=== PATIENT | male | born 1925 | race Caucasian/White ===

== ENCOUNTER 2016-07-10 13:45 | Observation (INO) ==
--- NOTE | 2016-07-10 14:17 | Emergency Department Note ---
Disposition Clinical Impression: Atrial fibrillation Qualifiers: Atrial fibrillation type: unspecified Qualified Code(s): I48.91 - Unspecified atrial fibrillation Disposition: Admitted As Inpatient Condition: Fair SOB HPI - General Chief Complaint: ED Shortness of Breath/Dyspnea Stated Complaint: SOB, CP Time Seen by Provider: 07/10/16 13:58 Source: patient Limitations: altered mental status Nursing Notes Reviewed: Yes Vital Signs Reviewed: Yes - History of Present Illness Mr. Delgado, an 89yo male, presents from home by POV with daughter bedside, CC: dyspnea. Hx COPD. Dyspnea onset yesterday with associated productive cough. No fever or chills. Nothing noted to worsen or improve his symptoms however his activity level is low at baseline. Patient daughter notes he was also diagnosed with dementia 2 years ago, recently started on a new medication by his PCP. He has had increased confusion since starting that medication described as worse at night and occasionally through during the day. Denies chest pain, diaphoresis, nausea, vomiting, changes in bowel or bladder, light headedness. Patient's daughter denies changes in urine color, frequency, or odor. Patient's daughter is bedside, she is a nurse out of state on a pulmonology unit. PMH: COPD (no home O2, no aerosol medications), DM II diet controlled, HTN, HLD , dementia. No hx ACS, CHF, A.Fib, or CKD. - Related Data Home Medications Medication Instructions Recorded Confirmed Memantine [Namenda] 5 mg PO HS 04/24/15 07/10/16 Omeprazole 20 mg PO DAILY 06/11/16 07/10/16 Aspirin 81 mg PO DAILY 07/10/16 07/10/16 Docusate [Colace] 100 mg PO DAILY 07/10/16 07/10/16 Multivitamin [Multi-Day Vitamins] 1 each PO DAILY 07/10/16 07/10/16 Naproxen Sod/Diphenhydram HCl 1 each PO HS 07/10/16 07/10/16 [Aleve Pm Caplet] Allergies Allergy/AdvReac Type Severity Reaction Status Date / Time No Known Allergies Allergy Verified 06/11/16 01:12 All systems ED: reviewed and negative except as stated. Constitutional: Denies: fever, chills, weakness ENT ED: Denies: congestion Cardiovascular: Reports: dyspnea on exertion. Denies: chest pain, palpitations , orthopnea, syncope Respiratory: Reports: cough, dyspnea, wheezes, sputum production. Denies: hemoptysis Gastrointestinal: Denies: abdominal pain, nausea, vomiting, diarrhea, constipation Genitourinary: Denies: urgency, dysuria Musculoskeletal: Denies: back pain, neck pain Neurological: Denies: headache Past Medical History - Past Medical History Medical history: Reports: dementia, diabetes, other Surgical history: Reports: no surgical history Psychiatric history: Reports: no psych history - Social History Smoking Status: Smoker, status unknown Smokeless Tobacco Status: No Alcohol use: Reports: none Drug use: Reports: none Physical Exam General: Patient is alert, not oriented (dementia), and in no acute distress. HEENT: No facial asymmetry. Head is normocephalic and atraumatic. Trachea midline. Cardiovascular: Heart regular rate and rhythm without clicks, rubs, gallops, or murmurs. No pedal edema. Respiratory: Symmetric chest rise with poor respiratory effort. Prolonged respiratory phase. Bilateral breath sounds have scant mild wheeze, bibasilar crackles, reduced left basilar lung sounds. Abdomen: Bowel sounds present normoactive x-4 quadrants. Abdomen is soft, nondistended, and nontender. No organomegaly noted. Neuro: Cranial nerves II through XII grossly intact. Psych: Patient's affect is appropriate for situation. - General Limitations: altered mental status General appearance: alert Course Course Narrative: Will workup for dyspnea including EKG, troponin, and duonebs. Patient's last UA 06/11 had no growth on culture. Echo March 2016: EF 55% Patient's labwork is unremarkable; no leukocytosis, negative troponin. No suspicion for PE: no recent surgeries, malignancies, travel. No tachycardia , tachypnea, chest pain. No suspicion for [place]: troponin negative. No ischemic EKG findings. EKG read as new onset A.Fib. CXR suspicious for CHF; patient's daughter denies hx CHF. Suspect the patient's symptoms caused by combination of A.Fib and possible CHF; a. fib the major contributing component. Spoke with the hospitalist, Dr. Michael; she agrees to take the patient. I informed her of the need for a sitter given the patient's dementia. 15:51 Patient's daughter is becimong distressed and frustrated. Her father is not currently on a rn cardiac rehab (he removed all the leads), she insists on an ABG as "I have seen patient on my floor with good vitals and bad ABG", and she requests "something to calm him down". I was able to convince her of the lack of utility of an ABG at this juncture given the strong suspicion for cardiac etiology of his symptoms. Will give him vistaril then re-attempt to connect patient to rn cardiac rehab. Vital Signs Temperature 97.3 F L 07/10/16 13:58 Pulse Rate 86 07/10/16 13:58 Respiratory Rate 18 07/10/16 13:58 Blood Pressure 127/65 07/10/16 13:58 O2 Sat by Pulse Oximetry 94 L 07/10/16 13:58 Temperature 98.0 F 07/10/16 17:19 Pulse Rate 103 07/10/16 17:19 Respiratory Rate 15 07/10/16 17:19 Blood Pressure 101/65 07/10/16 17:19 O2 Sat by Pulse Oximetry 92 L 07/10/16 17:19 Oxygen Delivery Oxygen Delivery Room Air Shortness of Breath/Dyspnea - Lab Data Lab results reviewed: Yes I reviewed the patient's lab results. Result diagrams: 07/10/16 14:20 07/10/16 14:20 Lab Results 07/10/16 07/10/16 07/10/16 Range/Units 14:20 14:20 14:20 WBC 6.4 (4.3-11.1) K/mcL RBC 4.00 L (4.19-5.50) M/mcL Hgb 12.6 L (12.9-16.9) g/dL Hct 38.4 (37.5-50.1) % MCV 96.0 (83.0-100.0) fL MCH 31.5 (28.0-33.3) pg MCHC 32.8 (31.6-35.5) g/dL RDW 12.6 (11.5-14.5) % Plt Count 160 (140-400) K/mcL MPV 9.6 (9.4-12.4) fL Immature Gran % 0.8 (0-4) % Seg Neutrophils % 71.3 % Lymphocytes % 20.4 % Monocytes % 6.4 % Eosinophils % 0.6 % Basophils % 0.5 % Neutrophils # 4.6 (1.6-8.9) K/mcL Lymphocytes # 1.3 (0.6-4.6) K/mcL Monocytes # 0.4 (0.0-1.3) K/mcL Eosinophils # 0.0 (0.0-0.6) K/mcL Basophils # 0.0 (0.0-0.2) K/mcL Sodium 141 (136-145) mEq/L Potassium 3.8 (3.5-4.5) mEq/L Chloride 107 (98-109) mEq/L Carbon Dioxide 26 (19-29) mEq/L BUN 36 H (8-26) mg/dL Creatinine 0.86 (0.72-1.25) mg/dL Est GFR ( Amer) > 60 (> 60) Est GFR (Non-Af Amer) > 60 (> 60) BUN/Creatinine Ratio 42 H (6-26) Glucose 157 H (70-99) mg/dL Calculated Osmolality 304 H (280-300) Calcium 9.0 (8.6-10.8) mg/dL Troponin I 0.02 (0-0.03) ng/mL - EKG Data EKG attestation: Yes I reviewed and interpreted this EKG. EKG results narrative: EKG dated 07/10/16 at 13:58 interpreted as satrial fibrillation, rate of 92. Low voltage in limb leads. Compared to previous EKG showing new onset A.Fib.
[2016-07-10] MEDS ORDERED: Ipratropium/Albuterol Neb 3 ML IH ONE (14:21)
[2016-07-10 14:29] LABS: Basophils % 0.5 %; Eosinophils % 0.6 %; Hematocrit 38.4 % (37.5-50.1); Hemoglobin 12.6 g/dL (12.9-16.9); Immature Granulocytes % 0.8 % (0-4); Lymphocytes # 1.3 K/mcL (0.6-4.6); Lymphocytes % 20.4 %; Mean Corpuscular HGB Conc 32.8 g/dL (31.6-35.5); Mean Corpuscular Hemoglobin 31.5 pg (28.0-33.3); Mean Platelet Volume 9.6 fL (9.4-12.4); Monocytes # 0.4 K/mcL (0.0-1.3); Monocytes % 6.4 %; Neutrophils # 4.6 K/mcL (1.6-8.9); Platelet Count 160 K/mcL (140-400); Red Cell Distribution Width 12.6 % (11.5-14.5); Segmented Neutrophils % 71.3 %
[2016-07-10 14:41] LABS: BUN/Creatinine Ratio 42 (6-26); Blood Urea Nitrogen 36 mg/dL (8-26); Carbon Dioxide 26 mEq/L (19-29); Chloride 107 mEq/L (98-109); Glucose 157 mg/dL (70-99); Osmolality,Calculated 304 (280-300); Potassium 3.8 mEq/L (3.5-4.5); Sodium 141 mEq/L (136-145); eGFR For African Americans > 60 (> 60); eGFR For Non-African Americans > 60 (> 60)
--- NOTE | 2016-07-10 15:57 | Emergency Department Note ---
Disposition Clinical Impression: Atrial fibrillation Disposition: Admitted As Inpatient Condition: Fair General Adult HPI - General Chief complaint: ED Shortness of Breath/Dyspnea Stated complaint: SOB, CP Time Seen by Provider: 07/10/16 13:58 Source: patient Limitations: altered mental status - History of Present Illness Pain Scale: 2 - Related Data Home Medications Medication Instructions Recorded Confirmed Memantine [Namenda] 5 mg PO HS 04/24/15 07/10/16 Omeprazole 20 mg PO DAILY 06/11/16 07/10/16 Aspirin 81 mg PO DAILY 07/10/16 07/10/16 Docusate [Colace] 100 mg PO DAILY 07/10/16 07/10/16 Multivitamin [Multi-Day Vitamins] 1 each PO DAILY 07/10/16 07/10/16 Naproxen Sod/Diphenhydram HCl 1 each PO HS 07/10/16 07/10/16 [Aleve Pm Caplet] Allergies Allergy/AdvReac Type Severity Reaction Status Date / Time No Known Allergies Allergy Verified 06/11/16 01:12 Constitutional: Denies: fever, chills, weakness ENT ED: Denies: congestion Cardiovascular: Reports: dyspnea on exertion. Denies: chest pain, palpitations , orthopnea, syncope Respiratory: Reports: cough, dyspnea, wheezes, sputum production. Denies: hemoptysis Gastrointestinal: Denies: abdominal pain, nausea, vomiting, diarrhea, constipation Genitourinary: Denies: urgency, dysuria Musculoskeletal: Denies: back pain, neck pain Neurological: Denies: headache Past Medical History - Past Medical History Medical history: Reports: dementia, diabetes, other Surgical history: Reports: no surgical history Psychiatric history: Reports: no psych history - Social History Smoking Status: Smoker, status unknown Smokeless Tobacco Status: No Alcohol use: Reports: none Drug use: Reports: none Physical Exam - General Limitations: altered mental status General appearance: alert Course - Reevaluation(s) Reevaluation #1: I saw the patient with the resident, Dr. Pulido. Patient presents with report of shortness of breath and wheezing. This is just a couple days. On examination he has wheezes and rales in his lungs. Vital signs are actually good. His pulse ox is in the mid 90s. His EKG however shows atrial fibrillation which is new according to the daughter and looking at old EKGs. Chest x-ray shows pulmonary edema. There is some edema in his legs. He had a echocardiogram done in March which showed an EF of 55%. This leads me to believe that the atrial fibrillation is the cause of this problem. We will give him a small dose of Lasix and arrange for the patient to be admitted to the hospital for management. He has significant dementia and cannot be left alone. In fact even with before the bedside he has pulled out his IV and continues to pull monitor leads off. We are trying to keep up with his best we can. Time: 15:57 Vital Signs Temperature 97.3 F L 07/10/16 13:58 Pulse Rate 86 07/10/16 13:58 Respiratory Rate 18 07/10/16 13:58 Blood Pressure 127/65 07/10/16 13:58 O2 Sat by Pulse Oximetry 94 L 07/10/16 13:58 Temperature 97.9 F 07/10/16 19:31 Pulse Rate 82 07/10/16 19:31 Respiratory Rate 20 07/10/16 19:31 Blood Pressure 115/63 07/10/16 19:31 O2 Sat by Pulse Oximetry 98 07/10/16 19:31 Oxygen Delivery Oxygen Delivery Room Air Medical Decision Making - Lab Data Result diagrams: 07/10/16 14:20 07/10/16 14:20 Lab Results 07/10/16 07/10/16 07/10/16 Range/Units 14:20 14:20 14:20 WBC 6.4 (4.3-11.1) K/mcL RBC 4.00 L (4.19-5.50) M/mcL Hgb 12.6 L (12.9-16.9) g/dL Hct 38.4 (37.5-50.1) % MCV 96.0 (83.0-100.0) fL MCH 31.5 (28.0-33.3) pg MCHC 32.8 (31.6-35.5) g/dL RDW 12.6 (11.5-14.5) % Plt Count 160 (140-400) K/mcL MPV 9.6 (9.4-12.4) fL Immature Gran % 0.8 (0-4) % Seg Neutrophils % 71.3 % Lymphocytes % 20.4 % Monocytes % 6.4 % Eosinophils % 0.6 % Basophils % 0.5 % Neutrophils # 4.6 (1.6-8.9) K/mcL Lymphocytes # 1.3 (0.6-4.6) K/mcL Monocytes # 0.4 (0.0-1.3) K/mcL Eosinophils # 0.0 (0.0-0.6) K/mcL Basophils # 0.0 (0.0-0.2) K/mcL Sodium 141 (136-145) mEq/L Potassium 3.8 (3.5-4.5) mEq/L Chloride 107 (98-109) mEq/L Carbon Dioxide 26 (19-29) mEq/L BUN 36 H (8-26) mg/dL Creatinine 0.86 (0.72-1.25) mg/dL Est GFR ( Amer) > 60 (> 60) Est GFR (Non-Af Amer) > 60 (> 60) BUN/Creatinine Ratio 42 H (6-26) Glucose 157 H (70-99) mg/dL Calculated Osmolality 304 H (280-300) Calcium 9.0 (8.6-10.8) mg/dL Troponin I 0.02 (0-0.03) ng/mL Attestation Statement - Attestation Attestation: I, Dr. Malagon, examined this patient [id number] and my medical decision- making was reviewed with Dr. Bee, Resident Physician. I agree with the documented findings, disposition and treatment plan as described except to the extent set forth below. Please see my progress notes for details.
[2016-07-10] MEDS ORDERED: hydrOXYzine pamoate 25 MG CAPSULE PO STA ×2 (15:58→22:16)
[2016-07-10] MEDS ORDERED: Acetaminophen 325 MG TABLET PO PRN (20:48)
[2016-07-10] MEDS ORDERED: Naloxone 0.4 MG/ML INJ IVP PRN (20:48)
--- NOTE | 2016-07-10 21:20 | Internal Med History&Physical ---
<Ute Hernandez - Last Filed: 07/11/16 00:39> Date of Encounter: 07/11/16 Time of Encounter: 19:30 Assessment and Plan (1) New onset atrial fibrillation Current visit: Yes Status: Acute Per patient's daughter, he has never been diagnosed with Afib in the past. Etiology unclear at this time, consider pneumonia as a possible cause. Last echo was on 03/23/16, showing LVEF 55-60% with mild LV diastolic dysfunction , aortic regurgitation, and moderate bi atrial enlargement. CHADS/VASC score of 6- indicating moderate to high risk of stroke, and there is an indicatoin for fdc anticoagulation. Consult to cardiology for recommendations regarding fdc anticoaglulation. 1mg/kg Lovenox Q12HR. hard to maintain IV access, as patient keeps pulling it out. patient's HR remains below 100. TSH pending. (2) Community acquired pneumonia Current visit: Yes Status: Acute Patient had wheezing upon exertion, productive cough with thick yellow sputum production. Patient lives at home by himself, with family members providing around the clock care. Consider aspiration pneumonia as a potential cause. Denies sick contacts. 500mg IV Levaquin Q24H. Blood cultures x2 pending urine cultures pending. patient does not currently meet criteria for sepsis. (3) Dementia Current visit: Yes Status: Chronic Patient has baseline dementia, with increased restlessness the past few months. Consider follow up with neurology and PCP Continue home medication Namenda. Qualifiers: Dementia type: unspecified type Dementia behavioral disturbance: with behavioral disturbance Qualified Code(s): F03.91 - Unspecified dementia with behavioral disturbance (4) Diabetes mellitus type 2 in nonobese Current visit: Yes Status: Acute per daughter, patient's diabetes is diet controlled. ACHS accuchecks Diabetic, soft diet. (5) DVT prophylaxis Current visit: Yes Status: Acute patient receiving lovenox. Internal Medicine - H&P: HPI Chief complaint: wheezing Admitted From: Home History of present illness: PCP: none Mr. Delgado is a 89 year old male with PMHx of asthma, aortic regurg, Type 2 DM ( diet controlled), dementia. Patient cannot give history due to his dementia, history was obtained from daughter Sheri Neumann RN. She states that yesterday the patient had wheezing upon exertion but his vitals were normal. Today, his wheezing upon exertion got worse. Also, he had increased confusion compared to his baseline dementia. He also reported chest pain at that time as well. Because of his increased wheezing upon exertion and chest pain, she brought him to the emergency room. upon asking the patient, he cannot say if he has chest pain or not because of his demential. Patient also had a few episodes of cough today with dark yellow thick sputum production. No fever or chills reported. I n the Ed, he received a breathing treatment, and he was found to have new onset Afib. She states that he has been on his medication for dementia for about a year. For the past few months, patient is very restless at night when trying to sleep. Daughter states that he moves around all night while laying down, and then only gets about two hours of sleep. She states that he cannot get Halodol because it makes him very agitated, aggressive, and he has hallucinations. Social History: not a current smoker. Has smoked cigars in the past, stopped over 50 years ago. Denies alcohol and illicit drug use. Lives at home by himself , but one of his daughters is always with him around the clock. They report that he is never by himself. Daughters state that they would be interested in getting home health for him-consult to delinquency prevention social worker will be made. Surgical History: her viet surgery five years ago, december of 2015 he had laser eye surgery. Family History: mother from PE at age 49, dad from coal workers pneumoconeosis in his 50s. No known family history of cancer. Brother had 3 heart attacks and is still living. Sister has COPD. Past Med Surg Social Fam HX - Past Medical History Medical history: dementia, diabetes, other Psychiatric history: no psych history - Past Surgical History Surgical History: no surgical history - Social History Smoking Status: Smoker, status unknown Smokeless Tobacco Status: No Alcohol use: none Drug use: none - Family History Mother Hx Family Respiratory Disorders: Yes (PE) Internal Medicine - H&P: Meds Memantine [Namenda] 5 mg PO HS 04/24/15 [History] Omeprazole 20 mg PO DAILY 06/11/16 [History] Aspirin 81 mg PO DAILY 07/10/16 [History] Docusate [Colace] 100 mg PO DAILY 07/10/16 [History] Multivitamin [Multi-Day Vitamins] 1 each PO DAILY 07/10/16 [History] Naproxen Sod/Diphenhydram HCl [Aleve Pm Caplet] 1 each PO HS 07/10/16 [History] Allergies No Known Allergies Allergy (Verified 06/11/16 01:12) ROS unobtainable: due to mental status All Systems PM: A 10-system review of systems was performed and is negative for pertinent findings except as documented above in the HPI. - Constitutional Vitals: Temp Pulse Resp BP Pulse Ox 97.9 F 82 20 115/63 98 07/10/16 19:31 07/10/16 19:31 07/10/16 19:31 07/10/16 19:31 07/10/16 19:31 General appearance: Present: pleasant, no acute distress. Absent: answers questions appropriately Exam: alert but not oriented. Restless. Appears very happy and smiles, but constantly wants to get up, walk around. Does not answer questions appropriately. 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 - Neck Neck exam general surgery: Present: supple, trachea midline - Respiratory Respiratory exam: Present: wheezes - Cardiovascular Cardiovascular exam: Present: irregular rhythm - GI/Abdominal GI/Abdominal exam: Present: normal bowel sounds, soft - Extremities Exam Additional comments: right leg has mild trace edema. No edema noted on the left leg. - Neurological Exam Neurological exam: Present: alert, oriented X3, no focal deficits - Psychiatric Additional comments: patient appears restless, but happy. - Skin Skin exam: Absent: cyanosis Internal Med - H&P Results - Labs CBC & Chem 7: 07/10/16 14:20 07/10/16 14:20 <Galina Sandoval - Last Filed: 07/11/16 12:43> Date of Encounter: 07/10/16 Internal Medicine - H&P: HPI History of present illness: Mr. Delgado is a 89 year old male All Systems PM: A 10-system review of systems was performed and is negative for pertinent findings except as documented above in the HPI. - Constitutional Vitals: Temp Pulse Resp BP Pulse Ox 97.6 F 72 16 119/67 92 L 07/11/16 07:30 07/11/16 07:30 07/11/16 07:30 07/11/16 07:30 07/11/16 07:30 Internal Med - H&P Results - Labs CBC & Chem 7: 07/11/16 04:06 07/11/16 04:06 Labs: Short CBC 07/11/16 Range/Units 04:06 WBC 6.5 (4.3-11.1) K/mcL Hgb 11.2 L (12.9-16.9) g/dL Hct 34.0 L (37.5-50.1) % Plt Count 139 L (140-400) K/mcL Neutrophils # 4.2 (1.6-8.9) K/mcL BMP 07/11/16 04:06 Sodium 144 Potassium 3.7 Chloride 109 Carbon Dioxide 25 BUN 35 H Creatinine 0.77 Glucose 109 H Calcium 8.7 Cardiac Enzymes 07/10/16 07/11/16 07/11/16 Range/Units 21:58 04:06 10:02 Troponin I 0.02 0.02 0.02 (0-0.03) ng/mL Urine 07/10/16 Range/Units 23:52 Urine Color Yellow (Yellow) Urine Clarity Clear (Clear) Urine pH 5.5 (5.0-8.0) pH Units Ur Specific [place] >= 1.030 H (1.010-1.025) Urine Protein 100 H (Neg-Trace) mg/dL Urine Glucose (UA) Normal (Normal) mg/dL - Impressions ITS Impressions Head CT 07/11/16 10:17 IMPRESSION: 1. No acute intracranial abnormality. 2. Atrophy and moderate chronic small vessel ischemic changes. D/ / Sen Petit MD / Sen Petit MD Interpreting Provider: Sen Petit MD - Attending Attestation I examined this patient and my medical decision-making was reviewed with the RELISH BLENDER/PA/Advanced Practice Nurse/Resident Physician. I agree with the documented findings, disposition and treatment plan as described except to the extent set forth below. I have personally evaluated the pt and discussed the details with the improvement intern/ resident. Pt is confused. Personal r/v of CXR shows possible infiltrate in the right mid zone. CRP is elevated. His presentation was with SOB/ cough - will treat him for CAP with levofloxacin. He has new onset A fib. Rate controlled. His CHADS2 score is high. Will possibly benefit with fdc anticoagulation for stroke prophylaxis. Will consult scale manager for further advice. Echo cardiogram. Check TSH
[2016-07-10] MEDS ORDERED: Ipratropium/Albuterol Neb 3 ML IH PRN (21:58)
[2016-07-11 00:23] LABS: Bilirubin,Urine Small (Negative); Blood,Urine Negative (Negative); Clarity,Urine Clear (Clear); Color,Urine Yellow (Yellow); Glucose,Urine (UA) Normal (Normal); Ketones,Urine Trace mg/dL (Negative); Leukocyte Esterase,Urine Negative (Negative); Nitrite,Urine Negative (Negative); PH,Urine 5.5 pH Units (5.0-8.0); Protein,Urine 100 mg/dL (Neg-Trace); Specific Gravity,Urine >= 1.030 (1.010-1.025)
[2016-07-11 00:25] LABS: Bacteria,Urine None Seen per hpf (None-Few); Hyaline Casts,Urine None Seen per lpf (None-Few); Squamous Epithelial Cell,Urine Moderate per lpf (None-Few)
[2016-07-11 00:41] LABS: Calcium Oxalate Crystals,Urine Present
[2016-07-11] MEDS ORDERED: Levofloxacin 500 MG/100 ML 500 MG/100 ML BAG IVPB SCH (01:00)
[2016-07-11 05:51] LABS: Basophils % 0.2 %; Eosinophils # 0.1 K/mcL (0.0-0.6); Eosinophils % 1.5 %; Hemoglobin 11.2 g/dL (12.9-16.9); Immature Granulocytes % 0.5 % (0-4); Lymphocytes # 1.5 K/mcL (0.6-4.6); Lymphocytes % 23.8 %; Mean Corpuscular HGB Conc 32.9 g/dL (31.6-35.5); Mean Corpuscular Hemoglobin 31.5 pg (28.0-33.3); Mean Corpuscular Volume 95.8 fL (83.0-100.0); Mean Platelet Volume 10.3 fL (9.4-12.4); Monocytes # 0.6 K/mcL (0.0-1.3); Monocytes % 8.8 %; Neutrophils # 4.2 K/mcL (1.6-8.9); Platelet Count 139 K/mcL (140-400); Red Blood Count 3.55 M/mcL (4.19-5.50); Red Cell Distribution Width 12.6 % (11.5-14.5); Segmented Neutrophils % 65.2 %
[2016-07-11 06:10] LABS: BUN/Creatinine Ratio 45 (6-26); Blood Urea Nitrogen 35 mg/dL (8-26); Calcium 8.7 mg/dL (8.6-10.8); Carbon Dioxide 25 mEq/L (19-29); Chloride 109 mEq/L (98-109); Glucose 109 mg/dL (70-99); Osmolality,Calculated 307 (280-300); Potassium 3.7 mEq/L (3.5-4.5); Sodium 144 mEq/L (136-145); eGFR For African Americans > 60 (> 60); eGFR For Non-African Americans > 60 (> 60)
[2016-07-11] MEDS: *HR* Enoxaparin 80 MG/0.8 ML SYRINGE SQ SCH ×2 (06:59→19:52)
--- NOTE | 2016-07-11 09:13 | Electrocardiograph Report ---
[facility] Test Date: 2016-07-10 Pat Name: Damian Delgado Department: 104 Room: 3B12 Gender: M Electromechanical Technician: : [id number] Requested By: Christo Bee Order Number: [id number] Reading MD: Khadar Kumar MD Measurements Intervals [place] Rate: 92 P: [place]: 0 QRS: 33 QRSD: 142 T: 60 QT: 365 QTc: 414 Interpretive Statements ATRIAL FIBRILLATION LEFT BUNDLE BRANCH BLOCK Electronically Signed On 07-11-16 09:12:44 EST by Khadar Kumar MD
--- NOTE | 2016-07-11 09:59 | Cardiology Consult Note ---
Date of Encounter: 07/11/16 Time of Encounter: 09:56 Assessment and Plan (1) Atrial fibrillation Current Visit: Yes Status: Acute New onset in setting of HCAP. Currently rate controlled on PO Lopressor 12.5mg BID. 12 hour tele AVG HR 86, A-Fib, no significant pauses. Pt with dementia--unable to tell me any symptoms. Troponins negative x 3. TSH 1.815, K 3.7--replace. Echo 03/2016 EF 55-60%. Mild diastolic dysfunction, mild-moderate AR and TR. CHADSVASC score is 3 (Age, HTN). Given his advanced age, dementia and high falls risk, recommend ASA only. Discussed with pt's daughter and she agrees to this. Continue BB for rate control, ASA only--not a candidate for anticoagulation. Anticipate sign off once seen and evaluated by Dr. Mary. Qualifiers: Atrial fibrillation type: unspecified Qualified Code(s): I48.91 - Unspecified atrial fibrillation (2) Left bundle branch block Current Visit: Yes Status: Chronic Not a new finding. Noted on past EKGs and echo. Discussion w patient/family: The assessment and plan as outlined above was discussed with the patient and/or family members who expressed understanding and agreement. All questions were answered. Thank you for involving us in the care of your patient. Please call with any questions. I will discuss all the above with Dr. Mary and make changes as necessary. History of Present Illness Consult date: 07/11/16 Requesting physician: Ute Hernandez Consult reason: A-Fib, new Chief complaint: dyspnea History of present illness: Mr. Delgado is a 89 year old male with PMHx of asthma, Type 2 DM (diet controlled ), dementia. Patient cannot give history due to his dementia, history was obtained from hospitalist H&P and from daughter Sheri Neumann RN. She states that the patient had wheezing upon exertion that was worsening, increased confusion compared to his baseline dementia. He also reported chest pain at that time as well. Because of his increased wheezing upon exertion and chest pain, she brought him to the emergency room. Upon asking the patient, he cannot say if he has chest pain or not because of his dementia. Patient has reportedly had a cough with dark yellow thick sputum production. No fever or chills reported. In the ED, he was found to have new onset Afib. No prior cardiac hx. Echo 03/2016 EF 55-60%, mild diastolic dysfunction, mild-moderate AR and TR. 12 hour tele AVG HR 86, A-Fib. Past Med Surg Social Fam HX - Past Medical History Medical history: dementia, diabetes, other Psychiatric history: no psych history - Past Surgical History Surgical History: no surgical history - Social History Smoking Status: Smoker, status unknown Smokeless Tobacco Status: No Alcohol use: none Drug use: none - Family History Mother Hx Family Respiratory Disorders: Yes (PE) Medications and Allergies Memantine [Namenda] 5 mg PO HS 04/24/15 [History] Omeprazole 20 mg PO DAILY 06/11/16 [History] Aspirin 81 mg PO DAILY 07/10/16 [History] Docusate [Colace] 100 mg PO DAILY 07/10/16 [History] Multivitamin [Multi-Day Vitamins] 1 each PO DAILY 07/10/16 [History] Naproxen Sod/Diphenhydram HCl [Aleve Pm Caplet] 1 each PO HS 07/10/16 [History] Allergies No Known Allergies Allergy (Verified 06/11/16 01:12) All Systems Review: A 10-system review of systems was performed and is negative for pertinent findings except as documented above in the HPI. Physical Examination Vital Signs, Last 4 Hours Temp Pulse Resp BP Pulse Ox 07/11/16 07:30 97.6 F 72 16 119/67 92 L Vital Signs Temp Pulse Resp BP Pulse Ox 07/11/16 07:30 97.6 F 72 16 119/67 92 L 07/11/16 04:58 97.7 F 85 16 115/62 93 L 07/11/16 00:00 98.2 F 90 18 122/80 94 L 07/10/16 22:19 94 L 07/10/16 21:57 89 L 07/10/16 19:31 97.9 F 82 20 115/63 98 07/10/16 17:19 98.0 F 103 15 101/65 92 L 07/10/16 14:04 96 07/10/16 13:58 97.3 F L 86 18 127/65 94 L Intake and Output 07/10/16 07/11/16 07/11/16 23:59 07:59 15:59 Intake Total 470 / 470 150 / 150 Output Total 400 / 400 Balance 70 / 70 150 / 150 Intake: IV Fluids 100 / 100 Levaquin 500mg/100mL 500 100 / 100 mg In 100 ml @ 100 mls/hr IVPB Q24H [facility] Rx#: [id number] Oral 470 / 470 50 / 50 Output: Urine 400 / 400 Other: # Voids 1 Weight 73.992 kg 63.503 kg Blood Glucose* 99 103 Patient Weight 07/11/16 23:59 Weight 63.503 kg General: Other (sleeping, will not communicate) HEENT: Atraumatic, Normocephaly, Mucus Membranes Moist Neck: No JVD, Normal carotid pulses Cardiac: Other (irregularly irregular) Lungs: Normal Breath Sounds, No Wheeze, Rales, Rhonchi Neuro: Other (confused, sleeping) Abdomen: Soft, Non-Tender Skin: No rashes noted on visualized skin Musculoskeletal: No Chest Wall Tenderness Extremities: No Clubbing, No Cyanosis, No Edema, Normal Pulses Results 07/11/16 04:06 07/11/16 04:06 Lab Results 07/10/16 07/11/16 07/11/16 21:58 04:06 04:06 WBC 6.5 Hgb 11.2 L Hct 34.0 L Plt Count 139 L Sodium Potassium Chloride Carbon Dioxide BUN Creatinine Glucose Calcium Troponin I 0.02 0.02 TSH 07/11/16 07/11/16 04:06 04:06 WBC Hgb Hct Plt Count Sodium 144 Potassium 3.7 Chloride 109 Carbon Dioxide 25 BUN 35 H Creatinine 0.77 Glucose 109 H Calcium 8.7 Troponin I TSH 1.815 Short CBC 07/11/16 07/10/16 Range/Units 04:06 14:20 WBC 6.5 6.4 (4.3-11.1) K/mcL Hgb 11.2 L 12.6 L (12.9-16.9) g/dL Hct 34.0 L 38.4 (37.5-50.1) % Plt Count 139 L 160 (140-400) K/mcL Neutrophils # 4.2 4.6 (1.6-8.9) K/mcL BMP 07/11/16 07/10/16 Range/Units 04:06 14:20 Sodium 144 141 (136-145) mEq/L Potassium 3.7 3.8 (3.5-4.5) mEq/L Chloride 109 107 (98-109) mEq/L Carbon Dioxide 25 26 (19-29) mEq/L BUN 35 H 36 H (8-26) mg/dL Creatinine 0.77 0.86 (0.72-1.25) mg/dL Glucose 109 H 157 H (70-99) mg/dL Calcium 8.7 9.0 (8.6-10.8) mg/dL Cardiac Enzymes 07/11/16 07/10/16 07/10/16 Range/Units 04:06 21:58 14:20 Troponin I 0.02 0.02 0.02 (0-0.03) ng/mL Urine 07/10/16 Range/Units 23:52 Urine Color Yellow (Yellow) Urine Clarity Clear (Clear) Urine pH 5.5 (5.0-8.0) pH Units Ur Specific [place] >= 1.030 H (1.010-1.025) Urine Protein 100 H (Neg-Trace) mg/dL Urine Glucose (UA) Normal (Normal) mg/dL Impressions Chest X-Ray 07/10/16 14:04 IMPRESSION: CHF and mild pulmonary edema with small right and trace left pleural effusions. D/ / Wolfgang Magana MD / Wolfgang Magana MD Interpreting Provider: Wolfgang Magana MD Active Medications Acetaminophen (Tylenol) 650 mg PO Q6HR PRN PRN Reason: Mild Pain (1-3) Stop: 01/09/17 20:49 Albuterol/Ipratropium (Duoneb) 3 ml IH [id number] PRN; Protocol PRN Reason: Shortness Of Breath/Wheezing Stop: 01/09/17 21:59 Aspirin (Aspirin) 81 mg PO DAILY [facility] Stop: 01/10/17 09:01 Docusate Sodium (Colace) 100 mg PO DAILY [place] PRN Reason: Protocol Stop: 01/10/17 09:01 Enoxaparin Sodium (Lovenox) 70 mg 1 mg/kg (70 mg) SQ Q12HR [place] PRN Reason: Protocol Stop: 01/10/17 06:01 Last Admin: 07/11/16 06:59 Dose: 70 mg Levofloxacin (Levofloxacin) 750 mg PO DAILY [facility] Stop: 01/10/17 09:01 Memantine (Namenda) 5 mg PO HS [place] Stop: 01/10/17 21:01 Metoprolol Tartrate (Lopressor) 12.5 mg PO BID [place] Stop: 01/10/17 09:01 Naloxone HCl (Narcan) 0.4 mg IVP Q2MIN PRN PRN Reason: Opioid Reversal Stop: 01/09/17 20:49 Omeprazole (Prilosec) 20 mg PO DAILY [place] Stop: 01/10/17 09:01 - Imaging and Cardiology Chest Xray: report reviewed Echo: report reviewed (03/2016 EF 55-60%, mild diastolic dysfunction, mild-mod AR and TR.) - EKG Interpretation EKG results cardiology: personally reviewed (A-Fib, rate 92, LBBB--not new), other (12 hour tele AVG HR 86 A-Fib, no significant pauses.) Consult Discharge Plan - Plan Referrals: Pio Henry MD [Primary Care Provider] -
[2016-07-11] MEDS: Aspirin 81 MG TAB.CHEW PO SCH (10:08)
[2016-07-11] MEDS: levoFLOXacin 750 MG TABLET PO SCH (10:08)
--- NOTE | 2016-07-11 10:13 | Internal Med Progress Note ---
Date of Encounter: 07/11/16 Time of Encounter: 09:30 - Assessment and plan (1) Acute encephalopathy Current Visit: Yes Status: Acute Assessment and plan: Unknown causation at this time. Patient's daughter states that he is able to dress and feed himself and typically recognizes everybody in his family and is only slightly confused. He is currently not able to follow commands and incomprehensible with his speech. Urinalysis negative. No leukocytosis. Chest x-ray consistent with mild CHF, not overtly suspicious for pneumonia but will continue levofloxacin. Will obtain head CT at this time. New onset atrial fibrillation without proper anticoagulation and elevated chadsvasc scoring, possibility of acute CVA although no focal neurological weaknesses or facial asymmetry or present on examination, he is unable to follow commands at this time for a proper neurological evaluation. ITS Impressions Chest X-Ray 07/10/16 14:04 IMPRESSION: CHF and mild pulmonary edema with small right and trace left pleural effusions. D/ / Wolfgang Magana MD / Wolfgang Magana MD Interpreting Provider: Wolfgang Magana MD (2) Community acquired pneumonia Current Visit: Yes Status: Acute (3) DVT prophylaxis Current Visit: Yes Status: Acute Assessment and plan: Subcutaneous Lovenox (4) New onset atrial fibrillation Current Visit: Yes Status: Acute Assessment and plan: Low-dose beta kina added for rate control. Cardiology on board, appreciate their recommendations. Likely recommendation for aspirin only (5) Dementia Current Visit: Yes Status: Chronic Qualifiers: Dementia type: unspecified type Dementia behavioral disturbance: with behavioral disturbance Qualified Code(s): F03.91 - Unspecified dementia with behavioral disturbance - Subjective Interval history: Patient seen and examined. On examination, patient initially asleep and awakened easily to voice. He is unable to answer questions at this time. He is unable to follow commands. History obtained from 2 family members at the bedside as well as his daughter, when over the phone. Per his daughter, patient 's baseline is mild confusion but still no suicidal is and still dresses and feeds himself at home. He is currently not back to his baseline. - Constitutional Vitals: Temp Pulse Resp BP Pulse Ox 97.6 F 72 16 119/67 92 L 07/11/16 07:30 07/11/16 07:30 07/11/16 07:30 07/11/16 07:30 07/11/16 07:30 General appearance: Present: A&O X 0, no acute distress. Absent: answers questions appropriately - Head Head exam: Present: atraumatic, normocephalic - Eye Eye exam: Present: PERRL, conjuntiva pink, sclera anicteric Pupils: Present: PERRL - Neck Neck exam general surgery: Present: supple, trachea midline. Absent: lymphadenopathy - Respiratory Respiratory exam: Present: decreased breath sounds. Absent: accessory muscle use, rales, respiratory distress, rhonchi, wheezes - Cardiovascular Cardiovascular exam: Present: RRR, +S1, +S2. Absent: diastolic murmur, gallop, rubs, systolic murmur - GI/Abdominal GI/Abdominal exam: Present: normal bowel sounds, soft, no peritoneal signs. Absent: distended, tenderness - Extremities Exam Extremities exam: Present: warm, radial pulses palpable and symetrical. Absent : calf tenderness, cyanotic, pedal edema - Neurological Exam Neurological exam: Present: altered, CN II-XII intact, no focal deficits, strengths equal and symetr throughout, speech deficit. Absent: pronater drift, facial droop - Expanded Neurological Exam Neurological exam expanded: Present: protecting the airway Patient oriented to: Absent: person, place, time Speech: Present: garbled, slurred Coma Scale Eye Opening: To Voice Coma Scale Motor Response: Withdraws to Pain Coma Scale Verbal Response: Incomprehensible Coma Scale Total: 9 - Skin Skin exam: Present: dry, intact, pallor, warm Internal Medicine: Result - Labs CBC & Chem 7: 07/11/16 04:06 07/11/16 04:06 Labs: Short CBC 07/11/16 Range/Units 04:06 WBC 6.5 (4.3-11.1) K/mcL Hgb 11.2 L (12.9-16.9) g/dL Hct 34.0 L (37.5-50.1) % Plt Count 139 L (140-400) K/mcL Neutrophils # 4.2 (1.6-8.9) K/mcL BMP 07/11/16 04:06 Sodium 144 Potassium 3.7 Chloride 109 Carbon Dioxide 25 BUN 35 H Creatinine 0.77 Glucose 109 H Calcium 8.7 Cardiac Enzymes 07/10/16 07/11/16 Range/Units 21:58 04:06 Troponin I 0.02 0.02 (0-0.03) ng/mL Urine 07/10/16 Range/Units 23:52 Urine Color Yellow (Yellow) Urine Clarity Clear (Clear) Urine pH 5.5 (5.0-8.0) pH Units Ur Specific [place] >= 1.030 H (1.010-1.025) Urine Protein 100 H (Neg-Trace) mg/dL Urine Glucose (UA) Normal (Normal) mg/dL Consult Discharge Plan - Plan Referrals: Pio Henry MD [Primary Care Provider] -
[2016-07-11] MEDS ORDERED: hydrOXYzine pamoate 25 MG CAPSULE PO PRN (15:39)
[2016-07-12 04:16] LABS: Basophils % 0.3 %; Eosinophils # 0.2 K/mcL (0.0-0.6); Eosinophils % 3.1 %; Hematocrit 35.3 % (37.5-50.1); Hemoglobin 11.4 g/dL (12.9-16.9); Immature Granulocytes % 0.7 % (0-4); Lymphocytes # 1.7 K/mcL (0.6-4.6); Mean Corpuscular HGB Conc 32.3 g/dL (31.6-35.5); Mean Corpuscular Hemoglobin 31.2 pg (28.0-33.3); Mean Corpuscular Volume 96.7 fL (83.0-100.0); Mean Platelet Volume 10.3 fL (9.4-12.4); Monocytes # 0.6 K/mcL (0.0-1.3); Monocytes % 10.7 %; Neutrophils # 3.2 K/mcL (1.6-8.9); Platelet Count 147 K/mcL (140-400); Red Blood Count 3.65 M/mcL (4.19-5.50); Red Cell Distribution Width 12.5 % (11.5-14.5); Segmented Neutrophils % 56.2 %
[2016-07-12 04:34] LABS: BUN/Creatinine Ratio 44 (6-26); Blood Urea Nitrogen 36 mg/dL (8-26); Calcium 8.7 mg/dL (8.6-10.8); Carbon Dioxide 24 mEq/L (19-29); Chloride 109 mEq/L (98-109); Glucose 86 mg/dL (70-99); Osmolality,Calculated 304 (280-300); Potassium 4.1 mEq/L (3.5-4.5); Sodium 143 mEq/L (136-145); eGFR For African Americans > 60 (> 60); eGFR For Non-African Americans > 60 (> 60)
[2016-07-12 06:47] VITALS: BP 124/69
[2016-07-12] MEDS: *HR* Enoxaparin 80 MG/0.8 ML SYRINGE SQ SCH (06:47)
--- NOTE | 2016-07-12 09:56 | Discharge Summary ---
Date of Encounter: 07/12/16 Time of Encounter: 09:00 - Discharge Diagnosis (1) Acute encephalopathy Priority: Primary Status: Resolved Comments: Patient returned to his baseline prior to discharge. No acute infectious etiologies uncovered during this admission. Urinalysis negative. No leukocytosis. No hypoxia or respiratory distress while admitted. Head CT negative. New-onset atrial fibrillation was treated with a beta kina and anticoagulation therapy not recommended other than initiation of aspirin. Cardiology was on board. Recommend follow-up outpatient. He was sent home with home health services and 24-hour supervision per his family 07/11/16 Unknown causation at this time. Patient's daughter states that he is able to dress and feed himself and typically recognizes everybody in his family and is only slightly confused. He is currently not able to follow commands and incomprehensible with his speech. Urinalysis negative. No leukocytosis. Chest x-ray consistent with mild CHF, not overtly suspicious for pneumonia but will continue levofloxacin. Will obtain head CT at this time. New onset atrial fibrillation without proper anticoagulation and elevated chadsvasc scoring, possibility of acute CVA although no focal neurological weaknesses or facial asymmetry or present on examination, he is unable to follow commands at this time for a proper neurological evaluation. ITS Impressions Chest X-Ray 07/10/16 14:04 IMPRESSION: CHF and mild pulmonary edema with small right and trace left pleural effusions. D/ / Wolfgang Magana MD / Wolfgang Magana MD Interpreting Provider: Wolfgang Magana MD (2) Community acquired pneumonia Priority: Primary Status: Ruled-out Comments: No respiratory distress noted during this admission. Chest x-ray and clinical picture more consistent with mild fluid overload that was resolved during this admission. ITS Impressions Chest X-Ray 07/10/16 14:04 IMPRESSION: CHF and mild pulmonary edema with small right and trace left pleural effusions. D/ / Wolfgang Magana MD / Wolfgang Magana MD Interpreting Provider: Wolfgang Magana MD (3) DVT prophylaxis Priority: Primary Status: Acute Comments: Subcutaneous Lovenox while admitted (4) New onset atrial fibrillation Priority: Primary Status: Acute Comments: Cardiology was brought on board during this admission. Started on low-dose beta kina for rate control. No full anticoagulation therapy recommended given his propensity of falling. Aspirin only. Follow-up outpatient. (5) Dementia Priority: Secondary Status: Chronic Qualifiers: Dementia type: unspecified type Dementia behavioral disturbance: with behavioral disturbance Qualified Code(s): F03.91 - Unspecified dementia with behavioral disturbance - Discharge Medications Prescriptions: HydrOXYzine Pamoate [Vistaril] 50 mg PO TID PRN #30 capsule PRN Reason: Anxiety Levofloxacin 750 mg PO DAILY #3 tablet Metoprolol [Lopressor] 12.5 mg PO BID #30 tablet Home Medications: Memantine [Namenda] 5 mg PO HS 04/24/15 [History] Omeprazole 20 mg PO DAILY 06/11/16 [History] Aspirin 81 mg PO DAILY 07/10/16 [History] Docusate [Colace] 100 mg PO DAILY 07/10/16 [History] Multivitamin [Multi-Day Vitamins] 1 each PO DAILY 07/10/16 [History] Naproxen Sod/Diphenhydram HCl [Aleve Pm Caplet] 1 each PO HS 07/10/16 [History] HydrOXYzine Pamoate [Vistaril] 50 mg PO TID PRN #30 capsule 07/12/16 [Rx] Levofloxacin 750 mg PO DAILY #3 tablet 07/12/16 [Rx] Metoprolol [Lopressor] 12.5 mg PO BID #30 tablet 07/12/16 [Rx] Allergies/Adverse Reactions: Allergies No Known Allergies Allergy (Verified 06/11/16 01:12) Procedures/tests Complete & Pending: Procedures Performed prior 72 hours Category Date Time Status CT head/brain wo con [CT] Routine Cat Scan 07/11/16 10:17 Completed Date of admission: 07/10/16 15:57 Primary care physician: Poi Henry MD Consults: 07/10/16 20:46 Consult to Unix Manager [CONS] Routine Reason for SW Consult: patient needs home health. 07/11/16 00:47 Consult to Cardiology [CONS] Routine Comment: Consulting Provider: Cardiology Maggie Reason for Consult: new onset Afib Call Completed: No 07/11/16 06:20 Consult to Occupational Therapy [CONS] Routine Comment: Evaluate, develop and implement POC Consult to Physical Therapy [CONS] Routine Comment: Evaluate, develop and implement POC 07/11/16 10:08 Consult to Speech Therapy [CONS] Routine Comment: Evaluate, develop and implement POC Reason for Consult: AMS; slured speech Call Completed: No Discharging clinician: Callie Keith Anticipated date of discharge: 07/12/16 (home with and 24 hour supervision per family) - Patient Status Disposition: Home Health Service Condition: Fair Functional capacity at discharge: independent ambulation Overall status at discharge: patient is back to baseline - Discharge Instructions Follow Up With: Pio Henry MD [Primary Care Provider] - Additional Instructions: Follow-up with primary care provider in one to 2 weeks - Diet and Activity Activity: as per physical therapy, increase activity as tolerated Diet: diabetic diet Hospital course: Mr. Delgado is a 89 year old male with past medical history of dementia, diabetes , tobacco abuse, asthma. Patient presented to the emergency department chief complaint wheezing with exertion and increased confusion. History was initially obtained from the patient's daughter, when who is a nurse. Upon arrival, patient's daughter stated he had complained of chest pain however given his dementia, patient was unable to answer questions regarding his symptoms upon presentation. Workup in the emergency department unremarkable. Chest x-ray consistent with mild CHF. Patient was admitted to the hospitalist service for further evaluation and management. No leukocytosis. Urinalysis negative. Head CT negative. No acute infectious processes identified. There was suspicion for possible pneumonia however patient's clinical picture was not consistent with pneumonia. He is a smoker and has not been formally diagnosed with COPD, he was treated for COPD/asthma exacerbation with levofloxacin. Atrial fibrillation was also noted on telemetry which is new according to the family. He was started on low-dose beta kina for rate control and cardiology was brought on board. Cardiology recommended continuing baby aspirin and low-dose beta kina. Not candidate for full anticoagulation therapy given his increased falls and advanced dementia. He was seen and evaluated by speech therapy without any issues identified. Patient was admitted and observed over the course of 3 days and he had returned to his baseline of pleasantly confused and very active prior to discharge. No focal neurological weaknesses noted during this admission. He was noted to be very active and very ambulatory throughout this admission. At times she would become agitated which was abated with hydroxyzine pamoate. He was seen and evaluated by physical therapy recommended home health services. His family states that they were able to provide 24-hour supervision as well. He was discharged home with home health services in stable condition with close outpatient follow-up recommended. ITS Impressions Chest X-Ray 07/10/16 14:04 IMPRESSION: CHF and mild pulmonary edema with small right and trace left pleural effusions. D/ / Wolfgang Magana MD / Wolfgang Magana MD Interpreting Provider: Wolfgang Magana MD Head CT 07/11/16 10:17 IMPRESSION: 1. No acute intracranial abnormality. 2. Atrophy and moderate chronic small vessel ischemic changes. D/ / Sen Petit MD / Sen Petit MD Interpreting Provider: Sen Petit MD - Time Spent with Patient Total time spent providing and/or coordinating discharge services: - Constitutional Vitals: Temp Pulse Resp BP Pulse Ox 97.4 F L 93 14 124/69 97 07/12/16 06:46 07/12/16 06:46 07/12/16 06:46 07/12/16 06:46 07/12/16 06:46 General appearance: Present: A&O X 1, pleasant, no acute distress. Absent: answers questions appropriately - Head Head exam: Present: atraumatic, normocephalic - Eye Eye exam: Present: PERRL, conjuntiva pink, sclera anicteric Pupils: Present: PERRL - Neck Neck exam general surgery: Present: supple, trachea midline. Absent: lymphadenopathy - Respiratory Respiratory exam: Present: decreased breath sounds. Absent: accessory muscle use, rales, respiratory distress, rhonchi, wheezes - Cardiovascular Cardiovascular exam: Present: RRR, +S1, +S2. Absent: diastolic murmur, gallop, rubs, systolic murmur - GI/Abdominal GI/Abdominal exam: Present: normal bowel sounds, soft, no peritoneal signs. Absent: distended, tenderness - Extremities Exam Extremities exam: Present: warm, radial pulses palpable and symetrical. Absent : calf tenderness, cyanotic, pedal edema - Neurological Exam Neurological exam: Present: alert, CN II-XII intact, normal gait, no focal deficits, strengths equal and symetr throughout. Absent: pronater drift, facial droop, speech deficit - Skin Skin exam: Present: dry, intact, pallor, warm
[2016-07-12] MEDS: levoFLOXacin 750 MG TABLET PO SCH (10:05)
[2016-07-12] MEDS: Aspirin 81 MG TAB.CHEW PO SCH (10:05)
--- NOTE | 2016-07-12 10:26 | Physician Discharge Referral ---
Home Health/Hosp Referral Info Transfer to: Home Health Attending Provider: Ilene Keith CNP Provider in Charge Post Discharge: PCP - Diagnosis (1) Acute encephalopathy Priority: Primary Status: Resolved (2) Community acquired pneumonia Priority: Primary Status: Ruled-out (3) DVT prophylaxis Priority: Primary Status: Acute (4) New onset atrial fibrillation Priority: Primary Status: Acute (5) Dementia Priority: Secondary Status: Chronic - Respiratory Orders Smoking Cessation: Smoking cessation has been advised. For more information, call the [place] Tobacco Quit Line at 2-777-JXZX-NOW. - Diet/Nutrition Diet/Nutrition Orders: Regular - Activity Activity Orders: Up ad eddie - Services Needed Following services are medically necessary services: Nursing, Home Health Aide, Physical Therapy, Occupational Therapy - Transfer Medications Prescriptions: HydrOXYzine Pamoate [Vistaril] 50 mg PO TID PRN #30 capsule PRN Reason: Anxiety Levofloxacin 750 mg PO DAILY #3 tablet Metoprolol [Lopressor] 12.5 mg PO BID #30 tablet Home Medications: Memantine [Namenda] 5 mg PO HS 04/24/15 [History] Omeprazole 20 mg PO DAILY 06/11/16 [History] Aspirin 81 mg PO DAILY 07/10/16 [History] Docusate [Colace] 100 mg PO DAILY 07/10/16 [History] Multivitamin [Multi-Day Vitamins] 1 each PO DAILY 07/10/16 [History] Naproxen Sod/Diphenhydram HCl [Aleve Pm Caplet] 1 each PO HS 07/10/16 [History] HydrOXYzine Pamoate [Vistaril] 50 mg PO TID PRN #30 capsule 07/12/16 [Rx] Levofloxacin 750 mg PO DAILY #3 tablet 07/12/16 [Rx] Metoprolol [Lopressor] 12.5 mg PO BID #30 tablet 07/12/16 [Rx] Allergies/Adverse Reactions: Allergies No Known Allergies Allergy (Verified 06/11/16 01:12) Certification: Further, I certify that my clinical findings support that this patient is homebound (i.e. absences from home require considerable and taxing effort and are for medical reasons or [employer] [facility] or infrequently or short duration when for other reasons) because: Homebound Reason: Leaving home requires considerable and taxing effort due to condition, Altered mental status requiring supervision when leaving home Attestation: My signature below is to certify that this patient is under my care and that I, or nurse practitioner, or a physician's telecom assistant working with me, has a face-to -face encounter with this patient.
== END 2016-07-12 14:31 | disposition home health service (06) ==
LOC: EMEROO 13:45 → 3BNU 13:45
PROVIDERS: ADMIT Nurse Practitioner Family; ATTEND Nurse Practitioner Family